=== PATIENT | male | born 1995 | race Caucasian/White ===

== ENCOUNTER 2023-01-29 09:14 | Emergency (ER) | payer OTHER, SELFPAY ==
[2023-01-29 09:27] VITALS: BP 134/93; PULSE 71; RESP 16; TEMP 36.4; O2SAT 100
--- NOTE | 2023-01-29 09:32 | ED.SKABFB ---
HPI - Skin/Abscess/Foreign Bdy General Chief complaint: Skin/Abscess/Foreign Body Stated complaint: Rash Time Seen by Provider: 01/29/23 09:33 Source: patient Mode of arrival: ambulatory Limitations: no limitations History of Present Illness HPI narrative: 27-year-old male presenting for complaint of a ?pimple? to the shaft of his penis for about 2 days. He endorses he has had history of this a few years ago in nearly the same location and was given a steroid/fungal cream which helped resolve the symptoms. He endorses it feels like a pimple, tender, and has white drainage at times. He has regular STD testing and denies concern for STD. Denies any skin lesions. Related Data Allergies Allergy/AdvReac Type Severity Reaction Status Date / Time No Known Drug Allergies Allergy Mild Verified 07/18/11 19:39 Review of Systems Review of Systems: CONSTITUTIONAL: Denies body aches, fever, chills, or sweats. EYES: Denies visual changes, redness, or discharge. ENT: Denies rhinorrhea, congestion CARDIOVASCULAR: Denies chest pain, palpitations, or edema. RESPIRATORY: Denies cough or dyspnea. GASTROINTESTINAL: Denies abdominal pain, nausea, vomiting, or diarrhea. SKIN: per HPI MUSCULOSKELETAL: Denies back pain, joint pain, or myalgia. NEUROLOGIC: Denies headache, numbness, tingling, or weakness. [facility] Past Medical History Medical History (Updated 01/29/23 @ 09:47 by Janay Dixon, ELOY) No pertinent past medical history Comments At time of signature, I have reviewed and agree with nursing past medical, surgical, social and family history unless otherwise noted. Please see nursing chart for further information. There is no relevant family history pertinent to the presenting complaint Exam Narrative: GENERAL: Well-appearing HEAD: Normocephalic, atraumatic. EYES: conjunctivae clear, and EOMI. ENT: Mucous membranes moist. Oropharynx without edema, erythema or lesions. NECK: Supple. No lymphadenopathy CHEST: Clear to auscultation. HEART: Regular rate and rhythm. SKIN: Warm, dry. Left penile shaft with erythematous pustule c/w folliculitis, scant active purulent drainage; nontender; chaperoned by Paola PICKETT. NEURO: Alert and oriented x3. Course Course Emergency Course: Patient is aware of diagnosis, understands and agrees to treatment plan. Anticipatory guidance given. Patient agrees to follow-up as directed and is aware of reasons to seek care at the emergency department. Portions of this record may have been created with voice recognition software Level of Care: Express Care Visit Vital Signs Vital signs: Vital Signs Temperature 97.5 F L 01/29/23 09:27 Pulse Rate 71 01/29/23 09:27 Respiratory Rate 16 01/29/23 09:27 Blood Pressure 134/93 H 01/29/23 09:27 Pulse Oximetry 100 01/29/23 09:27 Oxygen Delivery Room Air 01/29/23 09:27 Temperature 97.5 F L 01/29/23 09:27 Pulse Rate 71 01/29/23 09:27 Respiratory Rate 16 01/29/23 09:27 Blood Pressure 134/93 H 01/29/23 09:27 Pulse Oximetry 100 01/29/23 09:27 Oxygen Delivery Room Air 01/29/23 09:27 Reviewed MDM - Skin/Abscess/Foreign Bdy MDM Narrative Medical decision making narrative: Discussed physical exam findings. Pt declines std testing. Advised supportive measures and signs/symptoms to go to the ER. Pt is appropriate for outpt treatment and f/u. Differential Diagnosis Differential diagnosis: Likely abscess of skin or subcutaneous tissue, urticaria, herpes zoster, cellulitis, insect bites, contact dermatitis and other (chancre, folliculitis, HSV) Discharge Plan Discharge Clinical Impression: Folliculitis Patient Disposition: Home, Self-Care Condition: Stable Instructions: Antibiotic Form, Folliculitis (ED) Additional Instructions: Keep the area clean and dry - cleanse with warm water and mild soap and allow to fully dry. Apply the prescribed ointment to the site Warm compresses to the site
== END 2023-01-29 09:53 | disposition home or self-care (01) ==
PROVIDERS: Emergency Provider Nurse Practitioner Family
DX: L73.9 Follicular disorder, unspecified (principal)
CPT/HCPCS: 99213; G0463